=== PATIENT | female | born 1980 | race Caucasian/White ===

== ENCOUNTER → 2016-07-19 | Outpatient (CLI) | payer OTHER ==
[~2016-07-19] MED LIST: LEVO500T PO; NO HOME MEDS
[2016-07-19 12:46] LABS: MEAN CORPUSCULAR HEMOGLOBIN 30.5 pg (27.0-33.0); MEAN CORPUSCULAR HGB CONC 34.4 g/dl (32.0-36.5); MEAN CORPUSCULAR VOLUME 88.8 fl (80.0-96.0); RED CELL DISTRIBUTION WIDTH 12.7 % (11.5-14.5); WHITE BLOOD COUNT 7.6 K/mm3 (4.0-10.0)
== END ==
LOC: M LAB 11:04
PROVIDERS: ATTEND Obstetrics & Gynecology
DX: Z34.82 Encounter for supervision of other normal pregnancy, second trimester (principal)

== ENCOUNTER → 2016-08-16 | Outpatient (REF) | payer OTHER | LOC: M LAB REF 16:58 | PROVIDERS: ATTEND Obstetrics & Gynecology | DX: Z34.83 Encounter for supervision of other normal pregnancy, third trimester (principal) ==

== ENCOUNTER → 2016-08-29 | Outpatient (CLI) | payer OTHER ==
[~2016-08-29] VITALS: Ht 154.9 cm; Wt 104.0 kg
[2016-08-29 17:57] VITALS: BP 140/82
== END ==
LOC: M LDO 17:31
PROVIDERS: ATTEND Obstetrics & Gynecology
DX: O47.1 False labor at or after 37 completed weeks of gestation (principal); Z3A.37 37 weeks gestation of pregnancy

== ENCOUNTER 2016-09-15 09:28 | Outpatient (CLI) | payer OTHER ==
[~2016-09-15] VITALS: Ht 152.4 cm; Wt 109.0 kg
[2016-09-15] MEDS ORDERED: PRENTAB55 PO (09:48)
== END 2016-09-15 12:25 | disposition home or self-care (01) ==
LOC: M LDO 09:28
PROVIDERS: ATTEND Obstetrics & Gynecology
DX: O47.1 False labor at or after 37 completed weeks of gestation (principal); Z3A.40 40 weeks gestation of pregnancy

== ENCOUNTER 2016-09-17 11:08 | Inpatient (IN) | payer OTHER ==
[~2016-09-17] VITALS: Ht 154.9 cm; Wt 103.0 kg
[2016-09-17] VITALS (27 sets, daily range): BP systolic 91–207; BP diastolic 50–119
[~2016-09-17 11:08] MED LIST changes: +PRENTAB55 PO
[2016-09-17] MEDS ORDERED: TYLE1TAB5 PO (11:16)
[2016-09-17] MEDS ORDERED: LR 1,000 ML IV SCH ×2 (12:44→18:00)
[2016-09-17 12:45] LABS: MEAN CORPUSCULAR HEMOGLOBIN 29.3 pg (27.0-33.0); MEAN CORPUSCULAR HGB CONC 33.2 g/dl (32.0-36.5); MEAN CORPUSCULAR VOLUME 88.2 fl (80.0-96.0); RED CELL DISTRIBUTION WIDTH 13.5 % (11.5-14.5); WHITE BLOOD COUNT 10.3 K/mm3 (4.0-10.0)
[2016-09-17] MEDS ORDERED: OXYTOCIN DRIP 30 UNITS in APPROPRIATE DILUENT 1 EA IV SCH (12:45)
--- NOTE | 2016-09-17 13:29 | HPE ---
DATE OF ADMISSION: 09/17/2016 Perlita is a 36-year-old, 5, para 3-0-1-3 at 40-3/7 weeks gestation with an estimated date of confinement (EDC) of 09/14/2016 based on last normal menstrual period and confirmed by first trimester ultrasound. She presents to labor and delivery today for induction of labor for overdue . She denies regular contractions, vaginal bleeding and leakage of fluid. Her fetus has been active. care was initiated at [facility] in the second trimester as a transfer in from alternate care provider in [facility]. care initiated in the first trimester at alternate office. course has been complicated by abnormal Pap, low grade squamous intraepithelial lesion (LGSIL) with a plan to have a colposcopy. She had a positive chlamydia on 03/05/2016, with treatment of cure negative on 03/21/2016. She had an elevated 1-hour glucose challenge test of 141 and never completed a 3-hour glucose tolerance test. Also maternal obesity. OBSTETRICAL HISTORY: August 2006 miscarriage; May 2004 a spontaneous vaginal delivery at 40 weeks, 7 pounds 12 ounces female; February 2009 at 40 weeks, spontaneous vaginal delivery, 6 pounds 5 ounces female; August 2010, 6 pounds 3 ounces female spontaneous vaginal delivery at 38 weeks gestation. OBSTETRICAL LABORATORY DATA: Blood type B+, antibody screen negative, abnormal Pap smear, low grade antibody screen negative, rubella immune, VDRL nonreactive. Urine culture no growth. Hepatitis B surface antigen negative, HIV negative, positive chlamydia with repeat test of cure negative. Negative gonorrhea. She did not have genetic serum screening labs drawn. Gestational diabetic screening 141, no 3-hour glucose tolerance performed. GBS is negative. PAST MEDICAL HISTORY: Abnormal Pap smear, chlamydia. SURGERIES: Cholecystectomy. FAMILY HISTORY: Diabetes, hypertension, psychiatric diagnosis, varicose veins, miscarriage. SOCIAL HISTORY: The patient is single. Father at bedside and is supportive. She is a nonsmoker. Denies alcohol and drug use. No history of sexually transmitted diseases (STDs). Positive abnormal Pap smear. Denies history of abuse physical, sexual and emotional. OBJECTIVE: Temperature 98.5, pulse 80, respirations 80, blood pressure is elevated 148/93, 145/91, 141/94. heart rate 140 with moderate variability, she had a spontaneous deceleration down to the 80s with slow return to baseline over 3 minutes to 140s. Contractions none. Sterile vaginal exam 2, 50, ballottable, gravid abdomen, cephalic presentation. Estimated weight 7 pounds. ASSESSMENT: Intrauterine at 40-3/7 weeks gestation. heart rate category II. PLAN: Admit the patient to labor and delivery. Out of bed ad janette. Start IV Pitocin for contraction stress test. Did review potential risk for section due to failed induction, intolerance to labor. Labs including hemoglobin A1c, pre-eclamptic profile and spot urine. Dr. Yoder aware of patient status. All the patient's questions were answered and she does desire to proceed with induction. LYNNE
[2016-09-17 13:30] LABS: ALT/SGPT 16 U/L (12-78); AST/SGOT 18 U/L (15-37); BILIRUBIN,TOTAL 0.2 MG/DL (0.2-1.0); CREATININE FOR GFR 0.72 MG/DL (0.55-1.02); GLOMERULAR FILTRATION RATE > 60.0 (>60); URIC ACID 4.6 MG/DL (2.6-6.0)
[2016-09-17] MEDS ORDERED: LABETALOL HCL 100 MG/20 ML VIAL IV ONE (14:30)
[2016-09-17] MEDS ORDERED: LACTATED RINGER'S 1000 ML IV STA (15:34)
[2016-09-17] MEDS ORDERED: BICITRA 30ML SOLN UDC As Ordered ONE (15:42)
[2016-09-17] MEDS ORDERED: ceFAZolin 2 GM/D5W 50 ML IV BAG (J0690) As Ordered ONE (15:43)
[2016-09-17] MEDS ORDERED: MORPHINE PRES-FREE INJ 10 MG/10 ML VIAL (J2274) As Ordered ONE (15:48)
[2016-09-17] MEDS ORDERED: OXYTOCIN INJ 10 UNITS/ML VIAL (J2590) As Ordered ONE (15:49)
[2016-09-17] MEDS ORDERED: BICITRA 30ML SOLN UDC PO ONE (16:00)
[2016-09-17] MEDS ORDERED: ePHEDrine SULFATE 25 MG/5 ML(5MG/ML) SYRINGE As Ordered ONE (16:30)
[2016-09-17] MEDS ORDERED: fentaNYL 100 MCG/2 ML INJECTION (J3010) As Ordered ONE (16:46)
[2016-09-17] MEDS ORDERED: KETOROLAC 60 MG/2 ML VIAL (J1885) As Ordered ONE (16:47)
[2016-09-17] MEDS ORDERED: ONDANSETRON 4MG/2ML VIAL (J2405) As Ordered ONE (16:47)
[2016-09-17 16:57] LABS: CORD GAS ABE A -5.5; CORD GAS HCO3 A 24.4 MEQ/L; CORD GAS O2 SAT A 21.3 %; CORD GAS PCO2 A 64.9 mmHg; CORD GAS PH A 7.193 UNITS; CORD GAS PO2 A 15.6 mmHg; CORD GAS TCO2 A 26.4 MEQ/L
[2016-09-17 16:59] LABS: CORD GAS ABE V -5.8; CORD GAS HCO3 V 21.6 MEQ/L; CORD GAS O2 SAT V 56.1 %; CORD GAS PCO2 V 48.4 mmHg; CORD GAS PH V 7.267 UNITS; CORD GAS PO2 V 26.1 mmHg; CORD GAS SBC V 18.7 MEQ/L; CORD GAS TCO2 V 23.1 MEQ/L
[2016-09-17] MEDS ORDERED: IBUP800T23 PO (17:29)
[2016-09-17] MEDS ORDERED: PERC5TAB6 PO (17:31)
[2016-09-17] MEDS: LR 1,000 ML IV SCH (17:33)
[2016-09-17] MEDS ORDERED: RHOGAM 300 MCG (1500 IU) INJ (J2790) IM SCH (17:45)
[2016-09-17] MEDS ORDERED: MOM 30ML SUSPENSION UDC PO PRN (17:45)
[2016-09-17] MEDS ORDERED: DOCUSATE SODIUM 100 MG CAP PO PRN (17:45)
[2016-09-17] MEDS ORDERED: OXYTOCIN DRIP 30 UNITS in APPROPRIATE DILUENT 1 EA IV ONE (17:45)
[2016-09-17] MEDS ORDERED: PERCOCET 5MG/325MG TAB PO PRN ×2 (17:45→18:00)
[2016-09-17] MEDS ORDERED: MAG Sulf (L&D) 4 GM/100 ML 4 GM in APPROPRIATE DILUENT 1 EA IV ONE (17:45)
[2016-09-17] MEDS ORDERED: MEASLES,MUMPS,RUBELLA VACCINE INJ (MMR-II) (90707) SC SCH (17:45)
--- NOTE | 2016-09-17 17:56 | RO ---
DATE OF PROCEDURE: 09/17/2016 PREOPERATIVE DIAGNOSES: 1. Inability to augment labor. 2. Preeclampsia. 3. oligohydramnios. 4. Intrauterine at 40+ weeks. POSTOPERATIVE DIAGNOSES: 1. Inability to augment labor. 2. Preeclampsia. 3. oligohydramnios. 4. Intrauterine at 40+ weeks. PROCEDURE: Primary lower transverse section. SURGEON: Mary Yoder MD FURNITURE AND BEDDING INSPECTOR: Latisha Cervantes CNM ANESTHESIA: Spinal. ESTIMATED BLOOD LOSS: 450 mL. URINE OUTPUT: 25 mL. INTRAVENOUS FLUIDS: 1800 mL. PREOPERATIVE ANTIBIOTICS: 2 grams of Ancef. OPERATIVE FINDINGS: Liveborn male , scores 8 and 9. Weight was 2708 grams. Upon entry to the uterine cavity was meconium stained amniotic fluid, which was scant amount. SPECIMENS: Cord blood. INDICATION FOR OPERATION: The patient is a 36-year-old 5, para 3 who presents for induction of labor at 40 weeks 3 days estimated gestational age. Upon early evaluation, she was noted to have repetitive elevated blood pressures as well as spontaneous decelerations. A contraction stress test was then performed, which was positive with repetitive late decelerations. Pitocin was then shut off and the patient was then counseled for a primary lower transverse section with indication of inability to augment her labor. DESCRIPTION OF PROCEDURE: After informed consent was obtained and written consent was reviewed, the patient was then brought to the operating room where spinal anesthesia was placed. She was then placed in the lithotomy position with a left lateral tilt. A Boykin catheter was then placed and set to gravity. She was then prepped and draped in a normal sterile fashion. A time-out in the operating room was then performed, identifying the patient, procedure to be performed, as well as drug allergies. Anesthesia was then tested and deemed to be adequate. A Pfannenstiel skin incision was then made and carried down to the underlying rectus fascia. The fascia was then scored, and this incision was extended bilaterally. The fascia was then dissected off the underlying rectus muscles both superiorly and inferiorly. The rectus muscles were in the midline. The peritoneum was then entered. The vesicouterine peritoneum was then identified, was tented and excised to create a bladder flap. The bladder blade was then placed to retract back the bladder. Curvilinear incision was then made in the lower uterine segment. The uterine cavity was then entered with scant amount of meconium stained amniotic fluid. head was then brought to the level of the incision atraumatically followed by delivery of shoulders and corpus. The cord was clamped times two and was cut and the was brought over to the warmer with a good cry. Cord blood was obtained. The uterus was then exteriorized and cleared of all clots and debris. The uterine incision was then closed in two layers using #0 Vicryl, first layer in a running locking fashion, followed by a second layer for imbrication in a running nonlocking fashion. The abdomen was then suctioned. The uterus was returned and the patient's abdomen was reinspected and noted to be hemostatic. The anterior peritoneum was then reapproximated using #3-0 Vicryl. The rectus muscles were reapproximated with #3-0 Vicryl. The fascia was then closed using #0 Vicryl in a running nonlocking fashion. The subcutaneous tissue was then suctioned, the subcutaneous tissue was then reapproximated with #3-0 Vicryl and several subdermal stitches were placed of #3-0 Vicryl and the skin was closed with #4-0 Monocryl in a subcuticular fashion. The incision was then cleaned and dry. Mastisol was applied above and below the incision. Steri-Strips were applied over the incision, and then the incision was dressed. The patient was then taken to recovery in stable condition. Counts were correct. MTDD
[2016-09-17] MEDS ORDERED: fentaNYL 100 MCG/2 ML INJECTION (J3010) IV PRN (18:00)
[2016-09-17] MEDS ORDERED: METOCLOPRAMIDE INJ 10MG/2ML VIAL (J2765) IV PRN ×2 (18:00→19:15)
[2016-09-17] MEDS ORDERED: NALBUPHINE HCL 10 MG/ML AMP (J2300) IV PRN ×2 (18:00→19:15)
[2016-09-17] MEDS ORDERED: KETOROLAC 30 MG/ML VIAL (J1885) IV PRN (18:00)
[2016-09-17] MEDS ORDERED: MEPERIDINE INJ 25 MG/ML VIAL (J2175) IV PRN (18:00)
[2016-09-17] MEDS ORDERED: ONDANSETRON 4MG/2ML VIAL (J2405) IV PRN (18:00)
[2016-09-17] MEDS ORDERED: NALOXONE INJ 0.4 MG/1 ML VIAL (J2310) IV PRN ×2 (19:15)
[2016-09-17] MEDS: ONDANSETRON 4MG/2ML VIAL (J2405) IV PRN ×2 (20:17→20:18)
[2016-09-17] MEDS: KETOROLAC 30 MG/ML VIAL (J1885) IV SCH (23:02)
[2016-09-18] VITALS (15 sets, daily range): BP systolic 107–149; BP diastolic 63–85
[2016-09-18] MEDS: LR 1,000 ML IV SCH ×3 (01:33→12:32)
[2016-09-18] MEDS: MAG Sulf (OBGYN) 20GM/500ML 20,000 MG in APPROPRIATE DILUENT 1 EA IV SCH ×3 (03:30→12:32)
[2016-09-18] MEDS: KETOROLAC 30 MG/ML VIAL (J1885) IV SCH ×3 (06:25→17:00)
[2016-09-18 07:19] LABS: MEAN CORPUSCULAR HEMOGLOBIN 29.8 pg (27.0-33.0); MEAN CORPUSCULAR HGB CONC 33.7 g/dl (32.0-36.5); MEAN CORPUSCULAR VOLUME 88.5 fl (80.0-96.0); RED CELL DISTRIBUTION WIDTH 13.9 % (11.5-14.5); WHITE BLOOD COUNT 12.7 K/mm3 (4.0-10.0)
[2016-09-18] MEDS: PRENATAL VITAMIN TAB PO SCH (10:43)
[2016-09-18] MEDS: PERCOCET 5MG/325MG TAB PO PRN (22:51)
[2016-09-19 02:09] VITALS: BP 140/79
[2016-09-19] MEDS: IBUPROFEN 800 MG TAB PO SCH ×3 (02:58→19:20)
[2016-09-19 05:12] VITALS: BP 150/75
[2016-09-19] MEDS: PRENATAL VITAMIN TAB PO SCH (08:14)
[2016-09-19 10:00] VITALS: BP 134/74
[2016-09-19] MEDS: PERCOCET 5MG/325MG TAB PO PRN (13:51)
[2016-09-19 14:40] VITALS: BP 133/64
[2016-09-19 18:14] VITALS: BP 139/83
[2016-09-19 22:00] VITALS: BP 146/67
[2016-09-20] MEDS: IBUPROFEN 800 MG TAB PO SCH ×2 (01:56→09:01)
[2016-09-20 02:00] VITALS: BP 177/79
[2016-09-20 02:15] VITALS: BP 146/86
[2016-09-20 06:12] VITALS: BP 138/78
--- NOTE | 2016-09-20 07:32 | DSES ---
DATE OF ADMISSION: 09/17/2016 DATE OF DISCHARGE: HISTORY: 35-year-old, (G) 5, para (P) 3, female at 40 and 3/7 weeks gestation who presents for elective induction of labor. course was unremarkable. HOSPITAL COURSE: The patient was admitted on 09/17/2016 for induction. Prior to the initiation of the induction, she had heart rate deceleration noted. The patient underwent contraction stress test which she failed. Decision was made to proceed with section. She also had an elevated blood pressure at the time and subsequently was diagnosed with preeclampsia. On 09/17/2016, she underwent primary low transverse section without complication. Her postoperative course was significant for mildly elevated blood pressure. She was maintained on magnesium sulfate for 24 hours. She stabilized without the use of antihypertensive medicines. On postoperative day #2, she was deemed stable for discharge. ADMISSION DIAGNOSES: 1. at 40 weeks. 2. Preeclampsia. DISCHARGE DIAGNOSES: Delivered. PROCEDURE: Primary low transverse section. DISPOSITION: Patient will followup with [facility] in two weeks. Instructions were reviewed.
[2016-09-20] MEDS: PRENATAL VITAMIN TAB PO SCH (09:00)
[2016-09-20] MEDS: PERCOCET 5MG/325MG TAB PO PRN (09:01)
[2016-09-20] MEDS ORDERED: COLA100C PO (09:25)
[2016-09-20] MEDS ORDERED: MOM30SS PO (09:25)
== END 2016-09-20 10:45 | disposition home or self-care (01) | DRG 540 ==
LOC: M LDI 11:08 → M OBS 20:03
PROVIDERS: ADMIT Advanced Practice Midwife; ATTEND Advanced Practice Midwife
PROC: 10D00Z1 Extraction of Products of Conception, Low, Open Approach (ICD-10-PCS; principal; 2016-09-17 09:21)
DX: O48.0 Post-term pregnancy (principal); O14.04 Mild to moderate pre-eclampsia, complicating childbirth; O99.214 Obesity complicating childbirth; E66.9 Obesity, unspecified; O41.03X0 Oligohydramnios, third trimester, not applicable or unspecified; Z37.0 Single live birth; Z3A.40 40 weeks gestation of pregnancy; R87.622 Low grade squamous intraepithelial lesion on cytologic smear of vagina (LGSIL); O77.0 Labor and delivery complicated by meconium in amniotic fluid; O76 Abnormality in fetal heart rate and rhythm complicating labor and delivery; Z90.49 Acquired absence of other specified parts of digestive tract; Z83.3 Family history of diabetes mellitus; Z82.49 Family history of ischemic heart disease and other diseases of the circulatory system; Z81.8 Family history of other mental and behavioral disorders

== ENCOUNTER 2016-10-03 13:24 | Emergency (ER) | payer OTHER ==
[~2016-10-03 13:24] MED LIST changes: +COLA100C PO; +IBUP800T23 PO; +MOM30SS PO; +PERC5TAB6 PO; +TYLE1TAB5 PO
[2016-10-03] MEDS ORDERED: LABE10TAB PO (14:01)
--- NOTE | 2016-10-03 15:13 | REP ---
Clinical: Trauma. Technique: Oblique and lateral views of the sternum. Findings: No obvious acute sternal fracture identified. Impression: No obvious acute fracture. Signed by Vidal Mohan MD 10/03/2016 03:05 P
[2016-10-03 15:56] VITALS: BP 138/88
== END 2016-10-03 16:17 | disposition home or self-care (01) ==
LOC: EDBD 13:24 → M ED 14:17
DX: O9A.23 Injury, poisoning and certain other consequences of external causes complicating the puerperium (principal); S20.219A Contusion of unspecified front wall of thorax, initial encounter; S30.1XXA Contusion of abdominal wall, initial encounter; O15.2 Eclampsia complicating the puerperium; V44.6XXA Car passenger injured in collision with heavy transport vehicle or bus in traffic accident, initial encounter; Y92.415 Exit ramp or entrance ramp of street or highway as the place of occurrence of the external cause